=== PATIENT | female | born 1940 | race Caucasian/White ===

== ENCOUNTER 2016-09-20 09:32 | Day surgery (SDC) | payer MEDICARE, BC ==
[~2016-09-20 09:32] MED LIST: HYDROmorphone 2 MG/ML VIAL IV PRN; IV RINGERS,LACTATED 1000ML 1,000 ML IV SCH; LIDOCAINE 1% 1 ML SYRINGE. ID PRN; MORPHINE SULFATE 2 MG/ML DISP.SYRIN. IV PRN; ONDANSETRON PF 4 MG/2 ML VIAL. IV PRN; PROCHLORPERAZINE 10 MG/2 ML VIAL. IV PRN; fentaNYL PF VIAL 100 MCG/2 ML VIAL IV PRN
[2016-09-20] MEDS ORDERED: SCOPOLAMINE 1.5MG PATCH. TD ONE (10:00)
[2016-09-20 10:20] LABS: GLUCOSE,URINE NEGATIVE (NEG); PH,URINE 6.5; UROBILINOGEN,URINE 0.2 mg/dL (0.2 mg/dL)
[2016-09-20 10:21] LABS: HEMATOCRIT 37.8 % (36.0-47.0); RED BLOOD COUNT 3.96 x10^6/uL (3.50-5.40); RED CELL DISTRIBUTION WIDTH 12.6 % (11.5-14.5); WHITE BLOOD COUNT 6.1 x10^3/uL (4.0-11.0)
[2016-09-20] MEDS ORDERED: ATOR20TA58 PO (10:28)
[2016-09-20] MEDS ORDERED: ESTR42.53 VG (10:28)
[2016-09-20] MEDS ORDERED: LACT1CAP6 PO (10:28)
[2016-09-20] MEDS ORDERED: FAMO-63 PO (10:28)
[2016-09-20 10:36] LABS: BACTERIA,URINE 0 /HPF (0-FEW); RBC,URINE TNTC /HPF (0-2); WBC,URINE 0 /HPF (0-4)
[2016-09-20 10:41] LABS: CALCIUM 9.3 mg/dL (8.5-10.1); CREATININE 1.1 mg/dL (0.6-1.0); GFR 48.2; POTASSIUM 3.8 mmol/L (3.5-5.1)
[2016-09-20] MEDS ORDERED: DEXAMETHASONE SOD PHOS 20 MG/5 ML VIAL. ONE (11:31)
[2016-09-20] MEDS ORDERED: ONDANSETRON PF 4 MG/2 ML VIAL. ONE (11:31)
[2016-09-20] MEDS ORDERED: PROPOFOL 20 ML IV ONE ×2 (11:31→12:08)
[2016-09-20] MEDS ORDERED: LIDOCAINE 2% PF Vial for OR 5 ML VIAL. ONE (11:31)
[2016-09-20] MEDS ORDERED: PHENYLEPHRINE in 0.9% NACL PF 1 MG/10 ML DISP.SYRIN. IV ONE (11:46)
[2016-09-20] MEDS ORDERED: SEVOFLURANE 61 TO 120 MINUTES. IH ONE (12:08)
--- NOTE | 2016-09-20 12:19 | PDOC ---
BRIEF OPERATIVE NOTE Date: September 20, 2016 Pre-Op Diagnosis Bladder tumor (small), gross hematuria Post-Op Diagnosis Same Procedure Performed Cystoscopy bladder biopsy Transurethral resection bladder tumor (right lateral wall) Surgeon Jesus Anesthesia Type: General Blood Loss Minimal Specimens Obtained Bladder biopsies sent to path Findings small bladder tumor right lateral wall Complications None Additional Remarks Tolerated well, home JOSE EDUARDO PHAM DO September 20, 2016 12:19
--- NOTE | 2016-09-20 12:21 | DISCH ---
DISCHARGE INSTRUCTIONS Condition on Discharge Condition on Discharge: Stable Activity After Discharge Activity Instructions for Disc: Activity as tolerated Driving Instructions after Dis: Do not drive today Diet after Discharge Diet after Discharge: Regular Checks after Discharge DC Comment: void frequently to keep bladder as empty as possib Contacting the DR. after DC Call your doctor for: Concerns you may have Follow-Up Follow up with: Dr Pham in 2 weeks JOSE EDUARDO PHAM DO September 20, 2016 12:21
[2016-09-20] MEDS ORDERED: CIPR250T30 PO (12:24)
--- NOTE | 2016-09-20 12:48 | OP ---
DATE OF SURGERY: 09/20/2016 PREOPERATIVE DIAGNOSIS: Small bladder tumor, gross hematuria. POSTOPERATIVE DIAGNOSIS: Small bladder tumor, gross hematuria. PROCEDURE: Cystoscopy, bladder biopsy, and transurethral resection of small bladder tumor (right lateral wall). SURGEON: Jose Eduardo Pham DO. ANESTHESIA: General. INDICATIONS AND JUDGMENT: This is a 76-year-old female with a history of superficial bladder cancer. Recently, she has been experiencing some gross hematuria. She underwent cystoscopy in the office and was found to have a small bladder tumor on the right lateral wall which was actively bleeding. It was about the size of a pencil eraser. It was felt that she should undergo cystoscopy, bladder biopsies, and resection of the small bladder tumor. The procedure was explained to the patient. She appeared to understand and was agreeable. OPERATION PROCEDURE: The patient was preloaded with IV antibiotics. She was then taken to the Operating Room and placed on the operating room table, given a general anesthetic, and then placed in a dorsal lithotomy position using Gonzales stirrups since we do not have a cystoscopy table. She was prepped and draped in a sterile fashion. Rigid cystoscopy was performed. The bladder was examined. She had some small blood clots in the bladder. She has a moderate size cystocele. The ureteral orifices were normal bilaterally. The small bladder tumor was identified on the right lateral wall. It was actively bleeding. Further inspection of the bladder revealed that there were no other bladder tumors other than this one. I then passed a biopsy forceps through the working channel of the cystoscope and biopsied the bladder tumor that was sent to Pathology. I then used an Melendez resectoscope and a 24-Frisian resectoscope sheath and resected the bladder tumor completely and then fulgurated the base. Hemostasis was complete. The urine was not clear. No other lesions were identified. The bladder clots had been removed. Therefore, the instruments were removed. I decided not to place a Joseph catheter. I planned to send her home from the Recovery Room. She will go home with a prescription for Cipro 250 mg p.o. b.i.d. for 3 days. I will call her with the pathology report. She was instructed to empty the bladder frequently and not to allow the bladder to get very full while the area of concerned heals. JOSE EDUARDO PHAM DO DR: Aden JOB#: [id number] / [id number]
[2016-09-20 13:10] VITALS: BP 115/55
--- NOTE | 2016-09-22 16:34 | PATHOLOGY ---
PATHOLOGY REPORT * * * * * * * * FINAL DIAGNOSIS: Bladder tumor, transurethral resection: - PAPILLARY LOW-GRADE UROTHELIAL CARCINOMA. COMMENT: Sections of the bladder tumor transurethral resection reveal a papillary low-grade urothelial carcinoma. There is no evidence of tumor invasion of the underlying stroma. No muscularis propria is present in the specimen. The case is also examined by Dr. Kev Deal, who concurs with the diagnosis. REPORT ELECTRONICALLY SIGNED BY: Catracho Barbour M.D. DATE/TIME: 09/22/2016 16:34 * * * * * * * * GROSS PATHOLOGY: Received in formalin labeled "Brea Washington, bladder tumor," are 2 segments of payne soft tissue measuring 0.5 x 0.5 x 0.1 cm in aggregate dimensions and ranging from 0.3 to 0.5 cm in maximum dimension. The specimen is submitted entirely in cassette A1. (CAA; 09/21/2016) INITIAL CPT CODE(S): A; 80221 Professional services performed [place] [facility] [address] Technical services performed by [facility] at [address] [place] [address] [address], [place] [address]. SPECIMEN(S) RECEIVED: A.Bladder tumor CLINICAL HISTORY: Gross hematuria, history of non invasive bladder cancer PATIENT: BREA WASHINGTON /AGE: 1204/09/1940 (Age: 76) PATIENT #: [id number] ALT CASE #: SPECIMEN COLLECTION DATE: 09/20/2016 SPECIMEN RECEIVED DATE: 09/20/2016 [facility] - [address] [place] [address] - PHONE: [phone] * * * END OF REPORT * * *
== END 2016-09-20 13:30 | disposition home or self-care (01) ==
LOC: SURG 09:32
PROVIDERS: ATTEND Urology
DX: D49.4 Neoplasm of unspecified behavior of bladder (principal); E78.00 Pure hypercholesterolemia, unspecified; K21.9 Gastro-esophageal reflux disease without esophagitis; M19.90 Unspecified osteoarthritis, unspecified site; Z88.1 Allergy status to other antibiotic agents
CPT/HCPCS: 36415; 52234; 80048; 81001; 85027; J0780; J1100; J1956; J2370; J2405; J2704